=== PATIENT | female | born 1975 ===

== ENCOUNTER 2021-07-23 10:00 | Inpatient (IN) | payer OTHER ==
[~2021-07-23] VITALS: Ht 160 cm; Wt 86.2 kg
[2021-07-26] MEDS ORDERED: SPRINTEC 28 DA1 EACH (15:21)
[2021-07-29] MEDS ORDERED: COLACE100 MG PO (12:17)
[2021-07-29] MEDS ORDERED: PERCOCET 5-3251 EACH PO (12:17)
[2021-07-29] MEDS ORDERED: IBU800 MG PO (12:17)
[2021-07-29] MEDS ORDERED: SIMETHICONE80 MG PO (12:17)
== END 2021-07-29 13:31 | disposition home or self-care (01) | DRG 743 ==
LOC: O/R 07-26 08:57 → OB/GYN 07-26 10:00
PROVIDERS: ADMIT Obstetrics & Gynecology; ATTEND Obstetrics & Gynecology
PROC: 0TJB8ZZ Inspection of Bladder, Via Natural or Artificial Opening Endoscopic (ICD-10-PCS; 2021-07-26)
PROC: 0UT90ZZ Resection of Uterus, Open Approach (ICD-10-PCS; principal; 2021-07-26 16:00)
DX: D25.1 Intramural leiomyoma of uterus (principal); N94.5 Secondary dysmenorrhea; N73.6 Female pelvic peritoneal adhesions (postinfective); N81.11 Cystocele, midline; N92.0 Excessive and frequent menstruation with regular cycle; D50.0 Iron deficiency anemia secondary to blood loss (chronic); D48.4 Neoplasm of uncertain behavior of peritoneum; N80.0 Endometriosis of uterus